=== PATIENT | female | born 1955 | race Caucasian/White ===

== ENCOUNTER 2019-04-08 22:49 | Emergency (ER) | payer OTHER ==
[2019-04-09] MEDS: DEXAMETHASONE 10 MG/ML 1 ML INJ IM (01:21)
== END 2019-04-09 01:34 | disposition home or self-care (01) ==
LOC: FTE 22:49
DX: J06.9 Acute upper respiratory infection, unspecified (principal); I10 Essential (primary) hypertension; E11.9 Type 2 diabetes mellitus without complications; Z87.891 Personal history of nicotine dependence; Z79.84 Long term (current) use of oral hypoglycemic drugs
CPT/HCPCS: 71045; 93005; 96372; 99284-25